=== PATIENT | male | born 1950 | race Caucasian/White ===

== ENCOUNTER 2024-07-16 13:02 | Emergency (ER) | payer MEDICARE, OTHER, SELFPAY ==
[2024-07-16 13:05] VITALS: BP 138/60
[2024-07-16 13:30] LABS: % Basophils 0.2 % (0-2); % Eosinophils 0.5 % (0-6); % Immature Granulocytes 0.3 % (0-0.5); % Lymphocytes 13.2 % (20.5-51.1); % Neutrophils 76.8 % (42.2-75.2); Absolute Eosinophils 0.1 10^3/uL (0-0.7); Absolute Lymphocytes 1.5 10^3/uL (1.2-3.4); Absolute Neutrophils 8.9 10^3/uL (1.4-6.5); Hematocrit 46.2 % (39.0-52.0); Hemoglobin 15.2 g/dL (13.0-18.0); Mean Corp Hgb Conc. 32.9 g/dL (33.0-37.0); Mean Corpuscular Volume 85.1 fL (80.0-94.0); Mean Platelet Volume 8.8 fL (7.4-10.4); Nucleated Red Blood Cells % 0 % (-); Platelet Count 259 10^3/uL (130-400); Red Blood Cell Count 5.43 10^6/uL (4.70-6.10); Red Cell Dist. Width 14.7 % (11.5-14.5); White Blood Cell Count 11.6 10^3/uL (4.8-10.8)
[2024-07-16 13:44] LABS: ALT (SGPT) 47 U/L (0-50); AST (SGOT) 27 U/L (17-59); Albumin 4.2 g/dl (3.5-5.0); Alkaline Phosphatase 98 U/L (38-126); Blood Urea Nitrogen 27 mg/dl (9-20); Calcium 8.3 mg/dl (8.4-10.2); Carbon Dioxide 21 mmol/L (22-30); Chloride 107 mmol/L (98-107); Glucose 142 mg/dl (70-99); Lipase 45 U/L (23-300); Sodium 139 mmol/L (135-145); Total Bilirubin 1.3 mg/dl (0.2-1.3); Total Protein 7.1 g/dl (6.3-8.2); eGFR > 60.00
[2024-07-16] MEDS: NSS 1000 IV (17:20)
[2024-07-16] MEDS: ZOFRAN 8 MG IV (17:29)
[2024-07-16] MEDS: PEPCID 20 MG IV (17:30)
[2024-07-16 18:00] VITALS: BP 149/71
[2024-07-16 18:48] VITALS: BP 147/66
[2024-07-16 19:00] VITALS: BP 137/65
[2024-07-16 20:00] VITALS: BP 139/60
--- NOTE | 2024-07-16 20:14 | ED.GENMED ---
History of Present Illness
General
Chief Complaint: Abdominal Symptoms
Source: patient
Exam Limitations: none
Time Seen by Provider: 07/16/24 16:52
History of Present Illness
History of Present Illness:
73-year-old male presents with 2 to 3 days worth of chills sweats fatigue vomiting diarrhea and epigastric abdominal discomfort. He states today he tried to have some toast and the felt like it got stuck at the bottom of his throat. There has been
no vomiting today. No blood in the vomit or the stool. He is an insulin-dependent diabetic. No other complaints at this time.
Past History
Past History
ED Past Medical History: Hypercholesterolemia and Other (Kidney stones, gout)
Social History
Tobacco: Non-smoker
Alcohol: None
Family History
Family History: Negative Diabetes, Hypertension or CAD
Phy Exam
Physical Exam
Physical Exam:
General: Well-appearing male no acute respiratory distress
HEENT: Normocephalic atraumatic
Heart: Regular rate and rhythm no murmurs
Lungs: Clear no wheeze
Abdomen soft slightly tender in the epigastric region no guarding rebound bowel sounds nondistended
Extremities: No cyanosis or edema
Course
Orders/Labs/Results
Orders:
Orders
07/16/24 13:16
Complete Blood Count/With Diff Urgent
Comprehensive Metabolic Panel Urgent
Lipase Urgent
07/16/24 17:06
0.9% Sodium Chloride 1000 ml [Nss] 1,000 ml IV BOLUS
Famotidine [Pepcid] 20 mg IV NOW STA
Ondansetron Injectable [Zofran] 8 mg IV NOW STA
07/16/24 17:07
CT Abd/pelvis W Iv Cont Urgent
Comment:
Reason For Exam: abdominal pain, vomiting
Abnormal Lab Results
07/16/24
13:16
WBC 11.6 H 10^3/uL
(4.8-10.8)
MCHC 32.9 L g/dL
(33.0-37.0)
RDW 14.7 H %
(11.5-14.5)
Absolute Neuts (auto) 8.9 H 10^3/uL
(1.4-6.5)
Absolute Monos (auto) 1.0 H 10^3/uL
(0.1-0.6)
Neutrophils % 76.8 H %
(42.2-75.2)
Lymphocytes % 13.2 L %
(20.5-51.1)
Carbon Dioxide 21 L mmol/L
(22-30)
BUN 27 H mg/dl
(9-20)
Glucose 142 H mg/dl
(70-99)
Calcium 8.3 L mg/dl
(8.4-10.2)
07/16/24 13:16
07/16/24 13:16
Vital Signs
Initial and Last Documented VS:
Initial Vital Signs
Temp Pulse Resp BP Pulse Ox
97.8 F 80 18 138/60 97
07/16/24 13:05 07/16/24 13:05 07/16/24 13:05 07/16/24 13:05 07/16/24 13:05
Last Documented Vital Signs
Temp Pulse Resp BP Pulse Ox
98 F 64 18 137/65 97
07/16/24 18:00 07/16/24 19:00 07/16/24 13:05 07/16/24 19:00 07/16/24 19:00
MDM/Problems Addressed
Differential Diagnosis Includes:
Vomiting diarrhea abdominal discomfort. Consider viral illness versus foodborne illness versus obstruction. Check labs for electrolyte abnormality or dehydration. Given tenderness on exam and vomiting did order CT scan which demonstrates
thickening of the distal esophagus consistent with esophagitis. No bowel obstruction otherwise. He is treated with fluids Toradol Pepcid and is now tolerating oral fluids drinking apple juice.
No indication for admission to hospital. Recommend clear liquid diet and bland diet with Pepcid daily and return precautions were given.
*Critical Care Note
Total Time (30-74mins, 75-104mins- exclusive of procedures): Not Applicable
ED Attending Note
-
Portions of this chart may have been created with voice recognition software.� Occasional wrong word or��sound alike� substitutions may have occurred due to the inherent limitations of voice recognition software.
Discharge Plan
Departure
Patient Disposition: Home (Routine Discharge)
Date of Disposition: 07/16/24
Time of Disposition: 20:16
Patient with high blood pressure during this ER visit?: No
Discharge Problem:
Esophagitis
Instructions: Nausea and Vomiting, Adult (DC)
Prescriptions:
New
ondansetron 4 mg tablet,disintegrating
4 mg PO Q8H PRN (Reason: nausea and vomiting) Qty: 10 0RF
No Action
potassium citrate 10 MEQ tablet extended release
20 meq PO BID
allopurinol 300 MG tablet
300 mg PO DAILY
prednisone 10 MG tablet
10 mg PO .TAPER
cephalexin 500 MG tablet
500 mg PO BID Qty: 14 0RF
Referrals:
Efren Muro MD [Family Provider] -
Activity Restrictions/Additional Instructions:
Drink plenty clear liquids. Eat a bland diet as tolerated. Use Pepcid daily and Zofran if needed for nausea. Return here if worse otherwise consider following up with GI
Interventions
Interventions:
*Risk Screen - Suicide Last Done: 07/16/24 13:05
*General Assessment Last Done: 07/16/24 13:05
*Neglect/Abuse Screening Last Done: 07/16/24 13:05
ED- Fall Risk Assessment Last Done: 07/16/24 18:00
*ED COVID-19 Vaccine History Last Done: 07/16/24 13:05
HI-Qbulwp-Ythvmusoth Assessment Last Done: 07/16/24 18:00
Discharge Date and Time
Print Language: SPANISH
== END 2024-07-16 20:57 | disposition home or self-care (01) ==
LOC: EMR 13:02
PROVIDERS: Emergency Medicine; EMERGENCY PHYSICIAN Emergency Medicine; FAMILY PHYSICIAN Family Medicine
DX: K20.90 Esophagitis, unspecified without bleeding (principal); R53.83 Other fatigue; R11.10 Vomiting, unspecified; R19.7 Diarrhea, unspecified; R10.13 Epigastric pain; E78.00 Pure hypercholesterolemia, unspecified; M10.9 Gout, unspecified; E11.9 Type 2 diabetes mellitus without complications; Z87.442 Personal history of urinary calculi; Z79.4 Long term (current) use of insulin
CPT/HCPCS: 99284; 96375; 96361; 96374; 74177; 80053; 83690; 85025; Q9967

== ENCOUNTER → 2025-03-25 11:37 | Outpatient (REF) | payer MEDICARE, OTHER, SELFPAY | LOC: RAD 11:37 | PROVIDERS: ATTENDING PHYSICIAN Family Medicine | DX: M48.07 Spinal stenosis, lumbosacral region (principal) | CPT/HCPCS: 72110 ==